=== PATIENT | male | born 1945 | race Caucasian/White ===

== ENCOUNTER 2020-07-16 10:51 | Emergency (ER) | payer OTHER, MEDICARE, SELFPAY ==
--- NOTE | ~2020-07-16 | CT_ITS ---
EXAMINATION: CT abdomen pelvis wo con DATE: 07/16/2020 11:42 INDICATION: Right groin pain TECHNIQUE: Computed tomography (CT) of the abdomen and pelvis was performed without intravenous contr ast. Automated exposure control and iterative reconstruction technique were employed. The dose-length product was 535.97 mGy-cm. COMPARISON: None FINDINGS: Chronic elevation of the left hemidiaphragm. Minimal bibasilar atelectasis. Unchanged 9 mm triangular likely intrafissural lymph node along the right major fissure. A few scattered small calcified pulmo nary nodules in the right lower lobe along with calcified right hilar and mediastinal lymph nodes and multiple splenic and hepatic calcific a cyst, all consistent with old granulomatous disease. Cardiom egaly. Atherosclerotic coronary artery calcification. Aortic valve calcification. No pericardial or p leural effusion. Small sliding-type hiatal hernia. Cholecystectomy clips at the gallbladder fossa. Pa ncreas and right adrenal gland are normal. Unchanged thickening of the left adrenal gland without dis crete nodule. Kidneys and ureters are normal with no urolithiasis, hydroureteronephrosis or perinephr ic/ureteral stranding. Bladder is normal. Postoperative change of prior right hemicolectomy with ileo colic anastomosis in the anterior upper abdomen. No bowel obstruction. Calcific a cyst along the bila teral seminal vesicles which can be seen with diabetes. Prostatomegaly. No free intraperitoneal gas o r fluid. There is calcified atherosclerosis of the aorta and many of the other arteries. No patholog ically enlarged abdominal or pelvic lymphadenopathy. Moderate thoracolumbar spondylosis. There are br idging osteophytes at multiple levels in the lower thoracic spine consistent with diffuse idiopathic skeletal hyperostosis (DISH). IMPRESSION: 1. No acute intra-abdominal/pelvic process. 2. Prostatomegaly. Reviewed, dictated and finalized at location A. FIT AUTHORIZER
[2020-07-16 11:04] VITALS: BP 141/68; PULSE 51; RESP 18; TEMP 36.1; O2SAT 99
--- NOTE | 2020-07-16 12:10 | ED.GENADULT ---
HPI - General Adult General Chief complaint: Abdominal Pain Stated complaint: rt groin pain, concern for hernia Time Seen by Provider: 07/16/20 11:18 Source: patient Mode of arrival: ambulatory Limitations: no limitations History of Present Illness HPI narrative: Patient is a 75-year-old male who presents to emergency department with acute onset of right groin pain and swelling felt sharp pain in this location lasted for short period was coming to the ER set up in the swollen tender area reduced patient notes that the pain is much less at this time notes that he has had a history of an inguinal hernia on the left patient on arrival again resting comfortably in no distress Related Data Allergies Allergy/AdvReac Type Severity Reaction Status Date / Time No Known Allergies Allergy Unverified 04/09/18 13:05 Review of Systems Review of Systems: All systems reviewed & are unremarkable except as noted in HPI and below PMFSH Surgical History Surgical History (Updated 07/16/20 @ 12:11 by Jose Haney PA-C) H/O hernia repair Family History Family History (Updated 01/01/18 @ 11:21 by DOCTOR UNKNOWN) Mother Family history of malignant neoplasm Other Carcinoma of colon Social History Social History Smoking status: Former smoker Smoking end date: 09/04/75 Alcohol intake: never Gender identity (if verbalized by the patient): Male Exam Narrative: Exam Narrative: GENERAL: Well-appearing, well-nourished, and in no acute distress. HEAD: Normocephalic, atraumatic. EYES: PERRLA and EOMI. ENT: Nares clear, no rhinorrhea or epistaxis. Mucous membranes moist. CHEST: Clear to auscultation. No respiratory distress. No wheezes rales or rhonchi HEART: Regular rate and rhythm. No murmur heard. Normal peripheral pulses. ABDOMEN: Soft, tenderness of the right groin no deformity noted, nondistended, normal active bowel sounds. EXTREMITIES: Normal range of motion. No edema. SKIN: Warm, dry, no rash. NEURO: No focal deficits. Alert and oriented x3. Cranial nerves II through XII grossly intact PSYCH: Normal mood and affect. Course Course Emergency Course: Patient in the room in no distress aware of case findings treatment plan diagnosis will be referred to surgery for likely described inguinal hernia which was reduced prior to arriving. Patient afebrile nontoxic-appearing no distress felt appropriate for outpatient reevaluation given reasons to return Vital Signs Vital signs: Vital Signs Temperature 97 F L 07/16/20 11:04 Pulse Rate 51 L 07/16/20 11:04 Respiratory Rate 18 07/16/20 11:04 Blood Pressure 141/68 H 07/16/20 11:04 Pulse Oximetry 99 07/16/20 11:04 Temperature 97 F L 07/16/20 11:04 Pulse Rate 51 L 07/16/20 11:04 Respiratory Rate 18 07/16/20 11:04 Blood Pressure 141/68 H 07/16/20 11:04 Pulse Oximetry 99 07/16/20 11:04 Medical Decision Making MDM Narrative Medical decision making narrative: Patient in the room in no distress aware of case findings treatment plan diagnosis will be referred to general surgery and provided with reasons to return Vital Signs Vital Signs: Vital Signs Temperature 97 F L 07/16/20 11:04 Pulse Rate 51 L 07/16/20 11:04 Respiratory Rate 18 07/16/20 11:04 Blood Pressure 141/68 H 07/16/20 11:04 Pulse Oximetry 99 07/16/20 11:04 Temperature 97 F L 07/16/20 11:04 Pulse Rate 51 L 07/16/20 11:04 Respiratory Rate 18 07/16/20 11:04 Blood Pressure 141/68 H 07/16/20 11:04 Pulse Oximetry 99 07/16/20 11:04 Imaging Data Radiologist's impression: ITS Impressions Abdomen/Pelvis CT 07/16/20 11:44 IMPRESSION: 1. No acute intra-abdominal/pelvic process. 2. Prostatomegaly. Discharge Plan Discharge Clinical Impression: Hernia, inguinal, right Patient Disposition: Home, Self-Care Condition: Stable Instructions: Antibiotic Form, Ingu
[2020-07-16 12:23] VITALS: BP 132/70; PULSE 76; RESP 18; O2SAT 99
== END 2020-07-16 13:00 | disposition home or self-care (01) ==
PROVIDERS: Emergency Provider Emergency Medicine; PCP Family Medicine
DX: K40.90 Unilateral inguinal hernia, without obstruction or gangrene, not specified as recurrent (principal)
CPT/HCPCS: 74176; 99284

== ENCOUNTER 2023-09-19 15:18 | Emergency (ER) | payer MEDICARE, SELFPAY ==
--- NOTE | ~2023-09-19 | US_ITS ---
EXAMINATION: US venous doppler LE RT DATE: 09/19/2023 17:59 INDICATION: Right lower limb swelling. TECHNIQUE: Grayscale ultrasound images without and with compression and Doppler ultrasound images of the right lower extremity veins were obtained. COMPARISON: None. FINDINGS: The visualized portions of right common femoral vein, profunda (deep) femoral vein, femoral vein, pop liteal vein, posterior tibial veins, and greater saphenous vein outflow are patent. IMPRESSION: 1. No deep venous thrombosis. Reviewed, dictated and finalized at location E. MENTAL METAL WORKER
[2023-09-19 15:44] VITALS: BP 138/110; PULSE 66; RESP 18; TEMP 36.8; O2SAT 97
[2023-09-19 16:50] VITALS: BP 179/109; PULSE 69; RESP 17; TEMP 36.5; O2SAT 98
--- NOTE | 2023-09-19 16:57 | ED.GENADULT ---
HPI - General Adult General Chief complaint: Extremity Injury, Lower <Kraig Perez PA-C - Last Filed: 09/19/23 17:08> Stated complaint: left leg swollen and red <Kraig Perez PA-C - Last Filed: 09/19/23 17:08> Time Seen by Provider: 09/19/23 16:57 <Kraig Perez PA-C - Last Filed: 09/19/23 17:08> Focused HPI: This is a 78-year-old male who presents to the ED with chief complaint of right lower extremity pain, swelling and redness. Started 3-4 days ago and the redness is starting to spread up the leg now. She reports subjective fevers and chills. Denies any nausea, vomiting, history of blood clots. GENERAL: Well-appearing, well-nourished, and in no acute distress. HEAD: Normocephalic, atraumatic. CHEST: Clear to auscultation. No respiratory distress. HEART: Regular rate and rhythm. NEURO: Alert and oriented x3. Patient screened in triage and initial orders placed. Additional care and disposition to be based upon diagnostic testing and treatment. <Kraig Perez PA-C - Last Filed: 09/19/23 17:08> History of Present Illness HPI narrative: 78-year-old male presents emergency department for evaluation of right lower extremity erythema and edema. Patient states symptoms started on Monday and he did have associated rigors over the course of Monday night. Patient states that since Monday the erythema has progressed up the leg. Patient denies any current chest pain shortness of breath nausea vomiting diarrhea or fever. <Marciano Busby MD - Last Filed: 09/25/23 07:05> Related Data Allergies/adverse reactions: Allergies Allergy/AdvReac Type Severity Reaction Status Date / Time No Known Allergies Allergy Verified 09/19/23 16:59 <Kraig Perez PA-C - Last Filed: 09/19/23 17:08> Review of Systems Review of Systems: All systems reviewed & are unremarkable except as noted in HPI and below <Marciano Busby MD - Last Filed: 09/25/23 07:05> PMFSH Surgical History Surgical History: Surgical History (Updated 07/16/20 @ 12:11 by Jose Haney, ISH) H/O hernia repair <Kraig Perez PA-C - Last Filed: 09/19/23 17:08> Family History Family History: Family History (Updated 01/01/18 @ 11:21 by DOCTOR UNKNOWN) Mother Family history of malignant neoplasm Other Carcinoma of colon <Kraig Perez PA-C - Last Filed: 09/19/23 17:08> Social History Social History: Social History Smoking status: Former smoker Smoking end date: 09/04/75 Alcohol intake: never Gender identity (if verbalized by the patient): Male <Kraig Perez PA-C - Last Filed: 09/19/23 17:08> Exam Narrative: APPEARANCE: Well appearing, no pain, no distress, well-nourished. HEAD: normocephalic, atraumatic. EYES: PERRLA/EOMI, conjunctivae clear. NOSE: Normal no drainage EARS:TMS clear with good light reflex. THROAT: Pharynx clear, no exudate. NECK: Supple. No adenopathy, no masses. RESPIRATORY: Airway patent, respirations nonlabored. Clear to auscultation bilaterally, no rales, rhonchi, wheezing. CARDIOVASCULAR: Regular rate and rhythm without murmurs rubs or gallops. ABDOMINAL: Soft, nontender, nondistended, normal bowel sounds MUSCULOSKELETAL: Moves all extremities. Strength/ROM intact, No edema, No calf tenderness. NEURO: Alert. Cranial nerves II through XII intact. Grossly intact SKIN: Warm, dry. Normal Color <Marciano Busby MD - Last Filed: 09/25/23 07:05> Course Course Emergency Course: 78-year-old male presents the emergency department for evaluation of right lower extremity erythema and edema. Patient is afebrile with no leukocytosis and a stable hemoglobin of 15.8. Patient does have a creatinine of 1.8 but no recent creatinine on file. Venous Doppler showed no evidence of DVT. Suspect cellulitis. Patient was started on IV Rocephin in the emergency department patient will be
[2023-09-19 17:11] LABS: Basophils Percent Auto 0.2 % (0.2-1.2); Eosinophils Percent Auto 0.4 % (0-4.4); Hemoglobin 15.8 g/dL (14.0-18.0); Immature Granulocyte Absolute 0.03 K/mm3 (0.00-0.031); Immature Granulocyte Percent A 0.4 % (0-0.5); Immature Platelet Fraction Pct 6.8 % (0.9-11.2); Lymphocytes Absolute Auto 0.84 K/mm3 (0.9-3.2); Mean Corpuscular HGB Conc 32.9 g/dl (32-36); Mean Corpuscular Hemoglobin 30.8 pg (26-34); Mean Corpuscular Volume 93.6 fl (80-100); Mean Platelet Volume 11.8 fl (7.4-10.4); Monocytes Absolute Auto 1.1 K/mm3 (0.1-0.6); Monocytes Percent Auto 12.8 % (2.6-8.5); Neutrophils Absolute Auto 6.4 K/mm3 (1.3-6.7); Neutrophils Percent Auto 76.2 % (45.5-73.1); Platelet Count Result 126 k/mm3 (150-375); Red Blood Count 5.13 M/mm3 (4.6-6.20); Red Cell Distribution Width 13.2 % (11.5-14.5); White Blood Count 8.4 K/mm3 (4.5-10.0)
[2023-09-19 17:18] LABS: Lactic Acid Reflex 1.3 mmol/L (0.7-2.0)
[2023-09-19 17:20] LABS: Alanine Aminotransferase 24 U/L (6-50); Albumin Level 3.8 g/dL (3.5-5.1); Alkaline Phosphatase 55 U/L (38-126); Anion Gap 5 mmol/L (8-16); Aspartate Amino Transferase 59 U/L (17-59); Bilirubin,Total 0.8 mg/dL (0.2-1.3); Blood Urea Nitrogen 40 mg/dL (9-20); Calcium 9.6 mg/dL (8.4-10.2); Carbon Dioxide 29 mmol/L (22-30); Chloride 101 mmol/L (98-107); Estimated CRCL calculation 36 ml/min; Estimated Glomerular Filt Rate 37; Glucose 97 mg/dL (65-110); Potassium 4.6 mmol/L (3.4-5.0); Sodium 135 mmol/L (137-145)
[2023-09-19 17:25] LABS: INR 1.2
[2023-09-19 17:26] LABS: Partial Thromboplastin Time 44.3 SECONDS (22.3-36.8)
[2023-09-19 19:58] VITALS: BP 154/95; PULSE 77; RESP 16; TEMP 36.7; O2SAT 98
== END 2023-09-19 19:58 | disposition home or self-care (01) ==
PROVIDERS: Physician Assistant; Emergency Provider Emergency Medicine; PCP Family Medicine
DX: L03.115 Cellulitis of right lower limb (principal); Z87.891 Personal history of nicotine dependence
CPT/HCPCS: 36415; 80053; 83605; 85025; 85055; 85610; 85730; 87040; 93971; 96365; 99284; J0696

== ENCOUNTER 2023-10-05 11:42 | Emergency (ER) | payer MEDICARE, SELFPAY ==
--- NOTE | ~2023-10-05 | US_ITS ---
US venous doppler LE RT DATE: 10/05/2023 13:07 INDICATION: Edema of right lower extremity TECHNIQUE: Real-time and color flow imaging and Doppler analysis of the veins of the right lower extr emity COMPARISON: 09/19/2023 views duplex examination of the right lower extremity FINDINGS: The great saphenous vein is patent. There is spontaneous and phasic flow and normal augment ation and color flow signal and normal compression of the deep veins of the right lower extremity. IMPRESSION: No evidence of deep venous thrombosis of right lower extremity Reviewed, dictated and finalized at Location A. Reviewed, dictated and finalized at location L. HER'S ASSISTANT
--- NOTE | ~2023-10-05 | CT_ITS ---
EXAMINATION: CT abdomen pelvis wo con DATE: 10/05/2023 13:42 INDICATION: Left flank pain. Hematuria. TECHNIQUE: Computed tomography (CT) of the abdomen and pelvis was performed without intravenous contr ast. Automated exposure control and iterative reconstruction technique were employed. Exam dose: 608 .76 mGy-cm total exam DLP. COMPARISON: 07/16/2020 CT abdomen pelvis FINDINGS: Minimal atelectasis at the lung bases. Calcified right lower lobe pulmonary granulomas and hepatic and splenic calcified granulomas, consistent with old granulomatous disease. Status post sternotomy. Aortic valve replacement. Coronary artery calcifications. No pericardial or p leural effusion. Small sliding hiatal hernia. Minimal bilateral gynecomastia, greater on the left. Status post cholecystectomy. No bile duct or pancreatic duct dilatation. No hepatic, splenic, pancreatic, and adrenal or suspicious renal space-occupying mass lesion is evide nt on this limited noncontrast examination. Probable bilateral parapelvic renal cysts. No ureteral calculus or hydroureteronephrosis. Moderate prostatomegaly. Prominent bilateral vas deferens calcifications, suggesting diabetes. Fusiform approximately 3.4 cm infrarenal abdominal aortic aneurysm. No intraperitoneal or retroperitoneal or pelvic mass lesion or adenopathy or ascites is detected. Status post right partial colectomy. No bowel obstruction, bowel wall thickening, pneumatosis or intr aperitoneal free air. Moderate thoracic and lumbar spondylosis. No suspicious osteolytic or osteoblastic lesions are noted. IMPRESSION: Mild fusiform infrarenal abdominal aortic aneurysm Status post sternotomy and aortic valve replacement Small sliding hiatal hernia Status post cholecystectomy Status post right partial colectomy Prostatomegaly Prominent vas deferens calcifications, suggesting diabetes Reviewed, dictated and finalized at Location A. Reviewed, dictated and finalized at location L. E SUBSTANCE ABUSE
[2023-10-05 11:56] VITALS: BP 176/73; PULSE 68; RESP 16; TEMP 37.1; O2SAT 97
--- NOTE | 2023-10-05 12:23 | ED.GENADULT ---
HPI - General Adult General Chief complaint: Urogenital-Male Stated complaint: FLANK PAIN Time Seen by Provider: 10/05/23 12:02 History of Present Illness HPI narrative: Patient is 78-year-old male who presents ER with multiple complaints. He reports he has noticed spots of blood on his underwear after urinating last 2 days. He did pull back his foreskin and place a Q-tip at the tip of his penis to confirm that the blood was coming from his urethra. he denies any dysuria. No pain the abdomen rating to the flank or testicle. He does have some mild left-sided back pain when he lays down flat. Denies trauma. No sweats or nausea or vomiting. He also reports he has some persistent edema in his right lower extremity. It has worsened since being diagnosed and treated for cellulitis 2 and half weeks ago. He did have an ultrasound that time rule out DVT but he is concerned because is dehairing machine tender and has gotten larger. He is not wearing compression stockings or Alex wraps. Swelling does improve when he elevates his leg. Related Data Allergies Allergy/AdvReac Type Severity Reaction Status Date / Time No Known Allergies Allergy Verified 10/05/23 11:44 Review of Systems Review of Systems: All systems reviewed & are unremarkable except as noted in HPI and below Constitutional: Constitutional: Reports no additional constitutional complaints ENT: Reports system reviewed and no additional complaints, except as documented Cardiovascular: Cardiovascular: Reports no additional cardiovascular complaints Respiratory: Respiratory: Reports no additional respiratory complaints Gastrointestinal: Gastrointestinal: Reports no additional gastrointestinal complaints Genitourinary: Genitourinary: Reports hematuria, Denies oliguria, Denies dysuria, Denies penile discharge, Denies testicular pain and Denies urinary frequency Musculoskeletal: Musculoskeletal: Reports no additional musculoskeletal complaints [facility] Past Medical History Medical History (Updated 10/05/23 @ 14:56 by Anuj Smart MD) CAD in [place] artery Colon cancer, ascending Essential hypertension Mixed hyperlipidemia Myocardial infarction Surgical History Surgical History (Updated 07/16/20 @ 12:11 by Jose Haney, ISH) H/O hernia repair Family History Family History (Updated 01/01/18 @ 11:21 by DOCTOR UNKNOWN) Mother Family history of malignant neoplasm Other Carcinoma of colon Social History Social History Smoking status: Former smoker Smoking end date: 09/04/75 Alcohol intake: never Gender identity (if verbalized by the patient): Male Exam Narrative: GENERAL: Well-appearing, well-nourished, and in no acute distress. HEAD: Normocephalic, atraumatic. EYES: PERRL and EOMI. CHEST: Clear to auscultation. No respiratory distress. HEART: Regular rate and rhythm. Normal peripheral pulses. ABDOMEN: Soft, nontender, nondistended EXTREMITIES: Normal range of motion. No edema. SKIN: Warm, dry, no rash. NEURO: Alert and oriented x3. PSYCH: Normal mood and affect. Course Vital Signs Vital signs: Vital Signs Temperature 98.7 F 10/05/23 11:56 Pulse Rate 68 10/05/23 11:56 Respiratory Rate 16 10/05/23 11:56 Blood Pressure 176/73 H 10/05/23 11:56 Pulse Oximetry 97 10/05/23 11:56 Oxygen Delivery Room Air 10/05/23 11:56 Temperature 97.6 F 10/05/23 15:04 Pulse Rate 70 10/05/23 15:04 Respiratory Rate 18 10/05/23 15:04 Blood Pressure 165/95 H 10/05/23 15:04 Pulse Oximetry 97 10/05/23 15:04 Oxygen Delivery Room Air 10/05/23 11:56 Medical Decision Making Vital Signs Vital Signs: Vital Signs Temperature 98.7 F 10/05/23 11:56 Pulse Rate 68 10/05/23 11:56 Respiratory Rate 16 10/05/23 11:56 Blood Pressure 176/73 H 10/05/23 11:56 Pulse Oximetry 97 10/05/23 11:56 Oxygen Delivery Room Air
[2023-10-05 12:33] LABS: Basophils Percent Auto 0.4 % (0.2-1.2); Eosinophils Absolute Auto 0.1 K/mm3 (0-0.3); Eosinophils Percent Auto 2.2 % (0-4.4); Hematocrit 45.1 % (42.0-52.0); Hemoglobin 14.7 g/dL (14.0-18.0); Immature Granulocyte Absolute 0.01 K/mm3 (0.00-0.031); Immature Granulocyte Percent A 0.2 % (0-0.5); Lymphocytes Absolute Auto 0.52 K/mm3 (0.9-3.2); Lymphocytes Percent Auto 10.3 % (18.3-44.2); Mean Corpuscular HGB Conc 32.6 g/dl (32-36); Mean Corpuscular Hemoglobin 30.5 pg (26-34); Mean Corpuscular Volume 93.6 fl (80-100); Monocytes Absolute Auto 0.6 K/mm3 (0.1-0.6); Monocytes Percent Auto 12.3 % (2.6-8.5); Neutrophils Absolute Auto 3.8 K/mm3 (1.3-6.7); Neutrophils Percent Auto 74.6 % (45.5-73.1); Platelet Count Result 153 k/mm3 (150-375); Red Blood Count 4.82 M/mm3 (4.6-6.20); Red Cell Distribution Width 13.5 % (11.5-14.5); White Blood Count 5.1 K/mm3 (4.5-10.0)
[2023-10-05 12:37] VITALS: BP 167/96; PULSE 73; RESP 18; TEMP 36.3; O2SAT 96
[2023-10-05 12:39] LABS: Appearance Urine Clear (Clear); Bilirubin Urine Negative (Negative); Blood Urine Trace-Intact (Negative); Color Urine Yellow (Yellow); Glucose Urine UA Negative (Negative); Ketones Urine Negative (Negative); Nitrate Urine Negative (Negative); Protein Urine Negative (Negative); Specific Grav Ur >= 1.030 (1.001-1.035); Urobilinogen Urine 0.2 mg/dL (<2.0); pH Urine 5.5 (5.0-9.0)
[2023-10-05 12:40] LABS: Add Urine Microscopic? YES; Leukocyte Esterase Ur Negative LEU/UL (Negative)
[2023-10-05 12:43] LABS: Alanine Aminotransferase 24 U/L (6-50); Albumin Level 3.6 g/dL (3.5-5.1); Alkaline Phosphatase 56 U/L (38-126); Anion Gap 7 mmol/L (8-16); Aspartate Amino Transferase 57 U/L (17-59); Bilirubin,Total 0.8 mg/dL (0.2-1.3); Blood Urea Nitrogen 25 mg/dL (9-20); Calcium 9.6 mg/dL (8.4-10.2); Carbon Dioxide 27 mmol/L (22-30); Chloride 104 mmol/L (98-107); Estimated CRCL calculation 53 ml/min; Estimated Glomerular Filt Rate 59; Glucose 141 mg/dL (65-110); Potassium 3.8 mmol/L (3.4-5.0); Sodium 138 mmol/L (137-145)
[2023-10-05 12:44] LABS: Squamous Epithelial Cell Urine Rare /hpf (Few); WBC Urine 0-5 /hpf
[2023-10-05 15:04] VITALS: BP 165/95; PULSE 70; RESP 18; TEMP 36.4; O2SAT 97
== END 2023-10-05 15:05 | disposition home or self-care (01) ==
PROVIDERS: Emergency Provider Emergency Medicine; PCP Family Medicine
DX: R31.29 Other microscopic hematuria (principal); R60.0 Localized edema; I25.10 Atherosclerotic heart disease of native coronary artery without angina pectoris; I10 Essential (primary) hypertension; I25.2 Old myocardial infarction; E78.2 Mixed hyperlipidemia; Z95.2 Presence of prosthetic heart valve; Z87.891 Personal history of nicotine dependence; Z90.49 Acquired absence of other specified parts of digestive tract; I71.43 Infrarenal abdominal aortic aneurysm, without rupture; K44.9 Diaphragmatic hernia without obstruction or gangrene; N40.0 Benign prostatic hyperplasia without lower urinary tract symptoms; R93.89 Abnormal findings on diagnostic imaging of other specified body structures
CPT/HCPCS: 36415; 74176; 80053; 81001; 85025; 93971; 99284